=== PATIENT | female | born 1990 | race African-American/Black ===

== ENCOUNTER 2017-10-28 20:02 | Emergency (ER) | payer MEDICAID ==
[~2017-10-28] VITALS: Ht 162.6 cm; Wt 91.0 kg
[2017-10-28] MEDS ORDERED: IBUPROFEN 100MG/5ML UDC PO ONE (21:45)
[2017-10-28 22:15] VITALS: BP 131/79
== END 2017-10-28 22:18 | disposition home or self-care (01) ==
LOC: ER 20:35
DX: K08.89 Other specified disorders of teeth and supporting structures (principal); R13.10 Dysphagia, unspecified
CPT/HCPCS: 99283